=== PATIENT | male | born 1940 | race Caucasian/White ===

== ENCOUNTER 2017-02-19 13:58 | Observation (INO) | payer OTHER ==
[~2017-02-19] VITALS: Ht 177.8 cm; Wt 96.7 kg
[2017-02-19] VITALS (9 sets, daily range): BP systolic 112–136; BP diastolic 64–78; PULSE 49–67; TEMP 97.6–97.9
[2017-02-19] MEDS ORDERED: HYTRIN 5MG C5 MG/CAP PO (14:26)
[2017-02-19] MEDS ORDERED: PRINIVIL10 MG PO (14:26)
[2017-02-20 02:00] VITALS: BP 113/54; PULSE 57; TEMP 98.1
[2017-02-20 04:28] VITALS: BP 123/60; PULSE 54; TEMP 98.4
[2017-02-20 07:52] LABS: HEMATOCRIT 39.5 % (42.0-52.0); HEMOGLOBIN 13.6 g/dl (13.5-18.0); MEAN CELL VOLUME 92 fl (80.0-100.0); MEAN CORPUSCULAR HEMOGLOBIN 32 pg (27.0-31.0); MEAN CORPUSCULAR HGB CONC 34 g/dl (33.0-37.0); MEAN PLATELET VOLUME 8.7 fl (7.4-10.4); PLATELET COUNT 144 K/mm3 (130-400); REDCELL DISTRIBUTION WIDTH-CV 13.8 % (11.5-14.5); WHITE BLOOD COUNT 6.7 K/mm3 (4.8-10.8)
[2017-02-20 09:24] VITALS: BP 134/70; PULSE 58; TEMP 97.9
[2017-02-20 13:57] VITALS: BP 141/71; PULSE 60
[2017-02-20 16:58] VITALS: BP 142/70; PULSE 62; TEMP 98.9
[2017-02-20 21:30] VITALS: BP 149/64; PULSE 69; TEMP 98.7
[2017-02-21 05:24] VITALS: BP 144/78; PULSE 54; TEMP 98
[2017-02-21 09:35] VITALS: BP 152/88; PULSE 54; TEMP 98.2
[2017-02-21] MEDS ORDERED: PYRIDIUM 100MG100 MG PO (10:32)
[2017-02-21] MEDS ORDERED: NORCO 325 MG-51 TAB PO (10:33)
== END 2017-02-21 11:41 | disposition home or self-care (01) ==
LOC: SDCO 13:58 → SURG 18:11 → SDCO 18:12 → SURG 02-21 11:40
PROVIDERS: Urology
DX: N40.1 Benign prostatic hyperplasia with lower urinary tract symptoms (principal); R39.12 Poor urinary stream; R35.1 Nocturia
CPT/HCPCS: OP; G0378; J0690; J2250; J2270; J2704; J3010; J7120